=== PATIENT | male | born 1980 | race Caucasian/White ===

== ENCOUNTER 2017-11-21 14:49 | Emergency (ER) | payer OTHER ==
[2017-11-21 15:12] VITALS: BP 131/80; PULSE 74; TEMP 98.3; BMI 39.0
[2017-11-21] MEDS ORDERED: predniSONE 20 MG TABLET (UD) PO ONE (15:37)
--- NOTE | 2017-11-21 15:37 | PDOC ---
History of Present Illness - General History Source: Patient Exam Limitations: No Limitations - History of Present Illness Initial Comments: 11/21/17 15:41 The patient is a 37 year old male, with no significant past medical history who presents to the emergency department with cough, nasal congestion, and chest congestion since . The patient reports having a cough that has progressively been getting worse. He reports his cough is worse at night. He notes his cough is non-productive. He reports after seeing his PCP, being prescribed a .z-pack with no alleviation since. He denies any recent fevers, chills, headache or dizziness. He denies any recent nausea, vomit, diarrhea or constipation. Allergies: NKA Past surgical history: Gastric sleeve (done 09/2017) Social History: Nonsmoker. Denies EtOH use and recreational drug use. <Joselito Montano - Last Filed: 11/21/17 15:43> <Lennie Mckinney - Last Filed: 11/21/17 20:57> - General Chief Complaint: Cold Symptoms Stated Complaint: cough, Time Seen by Provider: 11/21/17 15:05 Past History <Joselito Montano - Last Filed: 11/21/17 15:43> - Past Medical History COPD: No Other medical history: denies - Suicide/Smoking/Psychosocial Hx Smoking History: Never smoked Have you smoked in the past 12 months: No Information on smoking cessation initiated: No Hx Alcohol Use: No Drug/Substance Use Hx: No Substance Use Type: None <Lennie Mciknney - Last Filed: 11/21/17 20:57> - Past Medical History Allergies/Adverse Reactions: Allergies Allergy/AdvReac Type Severity Reaction Status Date / Time No Known Allergies Allergy Verified 11/21/17 14:50 Home Medications: Ambulatory Orders Omeprazole 20 mg PO DAILY 11/21/17 Prednisone [Deltasone -] 40 mg PO DAILY #8 tablet 11/21/17 Review of Systems - Review of Systems Able to Perform ROS?: Yes Comments:: 11/21/17 15:41 GENERAL/CONSTITUTIONAL: No fever or chills. No weakness. HEAD, EYES, EARS, NOSE AND THROAT: +nasal congestion. No change in vision. No ear pain or discharge. No sore throat. CARDIOVASCULAR: No chest pain or shortness of breath. RESPIRATORY: +cough. No wheezing, or hemoptysis. GASTROINTESTINAL: No nausea, vomiting, diarrhea or constipation. GENITOURINARY: No dysuria, frequency, or change in urination. MUSCULOSKELETAL: No joint or muscle swelling or pain. No neck or back pain. SKIN: No rash NEUROLOGIC: No headache, vertigo, loss of consciousness, or change in strength/ sensation. ENDOCRINE: No increased thirst. No abnormal weight change. HEMATOLOGIC/LYMPHATIC: No anemia, easy bleeding, or history of blood clots. ALLERGIC/IMMUNOLOGIC: No hives or skin allergy. <Joselito Montano - Last Filed: 11/21/17 15:43> *Physical Exam - Vital Signs Last Vital Signs Temp Pulse Resp BP Pulse Ox 98.3 F 74 20 131/80 98 11/21/17 14:50 11/21/17 14:50 11/21/17 14:50 11/21/17 14:50 11/21/17 14:50 - Physical Exam Comments: 11/21/17 15:42 GENERAL: Awake, alert, and fully oriented, in no acute distress HEAD: No signs of trauma EYES: PERRLA, EOMI, sclera anicteric, conjunctiva clear ENT: Auricles normal inspection, hearing grossly normal, nares patent, oropharynx clear without exudates. Moist mucosa NECK: Normal ROM, supple, no lymphadenopathy, JVD, or masses LUNGS: Decreased air entry bilaterally. Scattered Rhonchi and intermittent cough. No wheezes, and no crackles HEART: Regular rate and rhythm, normal S1 and S2, no murmurs, rubs or gallops ABDOMEN: Soft, nontender, normoactive bowel sounds. No guarding, no rebound. No masses EXTREMITIES: Normal range of motion, no edema. No clubbing or cyanosis. No cords, erythema, or tenderness NEUROLOGICAL: Cranial nerves II through XII grossly intact. Normal speech, normal gait SKIN: Warm, Dry, normal turgor, no rashes or lesions noted. <Joselito Montano - Last Filed: 11/21/17 15:43> - Vital Signs Last Vital Signs Temp Pulse Resp BP Pulse Ox 98.3 F 74 20 131/80 98 11/21/17 14:50 11/21/17 14:50 11/21/17 14:50 11/21/17 14:50 11/21/17 14:50 <Lennie Mckinney - Last Filed: 11/21/17 20:57> Medical Decision Making - Medical Decision Making Symptoms are more consistent with a viral syndrome with bronchospasm, therefore would not expect antibiotics to help. Treated with nebs and a short course of steroids. No fever, not ill-appearing. Would not suspect influenza based on the clinical presentation. <Lennie Mckinney - Last Filed: 11/21/17 20:57> *DC/Admit/Observation/Transfer - Attestations Scribe Attestion: 11/21/17 15:42 Documentation prepared by Joselito Montano, acting as medical records library professor for Lennie Mckinney MD. <Joselito Montano - Last Filed: 11/21/17 15:43> - Discharge Dispostion Admit: No <Lennie Mckinney - Last Filed: 11/21/17 20:57> Diagnosis at time of Disposition: Upper respiratory infection Qualifiers: URI type: unspecified URI Qualified Code(s): J06.9 - Acute upper respiratory infection, unspecified - Discharge Dispostion Disposition: HOME Condition at time of disposition: Stable - Prescriptions Prescriptions: Prednisone [Deltasone -] 40 mg PO DAILY #8 tablet - Patient Instructions Printed Discharge Instructions: DI for Viral Upper Respiratory Infection -- Adult - Post Discharge Activity Forms/Work/School Notes: Back to Work
[2017-11-21] MEDS: ALBUTEROL SO4 2.5/IPRATROPIUM 0.5 INH SOL 3 ML VIAL.NEB. NEB SCH ×3 (16:01→16:38)
[2017-11-21] MEDS ORDERED: predniSONE 20 MG TABLET (UD) ONE (16:02)
[2017-11-21] MEDS ORDERED: ALBUTEROL SO4 0.083% IH SOL 2.5 MG/3 ML VIAL.NEB. NEB ONE (16:04)
[2017-11-21] MEDS ORDERED: IPRATROPIUM BR 0.02% 0.5 MG/2.5 ML VIAL.NEB. NEB ONE (16:04)
== END 2017-11-21 17:02 | disposition home or self-care (01) ==
LOC: FER 14:49
PROC: 3E0F7GC Introduction of Other Therapeutic Substance into Respiratory Tract, Via Natural or Artificial Opening (ICD-10-PCS; principal; 2017-11-21)
DX: J06.9 Acute upper respiratory infection, unspecified (principal); Z98.84 Bariatric surgery status
CPT/HCPCS: 71046-TC; 99282-25